=== PATIENT | female | born 2000 | race African-American/Black ===

== ENCOUNTER 2024-07-15 13:15 | Inpatient (IN) | payer OTHER, MEDICAID ==
[~2024-07-15] VITALS: Ht 154.9 cm; Wt 65.7 kg
[2024-07-15 13:21] VITALS: O2SAT 99
[2024-07-15 14:24] LABS: BASOPHILS % 0.1 % (0.0-2.0); EOSINOPHILS % 0.1 % (0.0-5.0); HEMATOCRIT. 38.8 % (36.0-48.0); HEMOGLOBIN. 13.2 g/dL (12.0-16.0); LYMPHOCYTES % 21.5 % (20.0-50.0); MEAN CORPUSCULAR HEMOGLOBIN 28.4 pg (28.0-32.0); MEAN CORPUSCULAR HGB CONC 33.9 g/dL (31.0-37.0); MEAN CORPUSCULAR VOLUME 83.5 fL (81.0-99.0); MONOCYTES % 7.4 % (2.0-8.0); NEUTROPHILS % 70.9 % (40.0-76.0); PLATELET 335 x1000/uL (130-400); RED BLOOD CELL COUNT 4.64 mill/uL (4.2-5.4); RED CELL DISTRIBUTION WIDTH 15.2 % (11.6-14.6)
[2024-07-15 14:35] LABS: CHLORIDE 106 mEq/L (98-107); POTASSIUM 2.9 mEq/L (3.5-5.1); SODIUM 140 mEq/L (136-145)
[2024-07-15 14:36] LABS: CALCIUM 9.4 mg/dL (8.7-10.4); CARBON DIOXIDE 21 mEq/L (21-32)
[2024-07-15 14:41] LABS: CREATININE 0.6 mg/dL (0.6-1.0); GLUCOSE 114 mg/dL (70-105); UREA NITROGEN BLOOD 6 mg/dL (9-23)
[2024-07-15 14:43] LABS: ALANINE AMINOTRANSFERASE 10 IU/L (10-49); ALBUMIN 4.4 g/dL (3.2-4.8); ASPARTATE AMINOTRANSFERASE 16 IU/L (<34); BILIRUBIN DIRECT 0.1 mg/dL (<=3.0)
[2024-07-15 14:44] LABS: BILIRUBIN TOTAL 0.4 mg/dL (0.1-1.0); PROTEIN TOTAL 7.9 g/dL (6.0-8.3)
[2024-07-15 15:18] LABS: HCG SCREEN POSITIVE
[2024-07-15] MEDS ORDERED: ONDANSETRON HCL 4MG/2ML INJ IV PRN (16:30)
[2024-07-15] MEDS ORDERED: ACETAMINOPHEN 325MG TABLET PO PRN (16:30)
[2024-07-15] MEDS ORDERED: DEXTROSE 50% WATER 50ML SYRINGE IV PRN (16:45)
[2024-07-15 16:49] VITALS: TEMP 36.9; O2SAT 99
[2024-07-15 17:00] VITALS: BP 136/84; PULSE 18; RESP 19; TEMP 98.42
[2024-07-15] MEDS ORDERED: POTASSIUM CHLORIDE 20MEQ TABLET SR PO SCH ×2 (17:00)
[2024-07-15] MEDS: ACETAMINOPHEN 325MG TABLET PO PRN (17:08)
[2024-07-15] MEDS: INSULIN LISPRO 100 UNITS/ML SUBCUT SCH (17:26)
[2024-07-15] MEDS ORDERED: INSULIN GLARGINE 100 UNITS/ML SUBCUT SCH (22:00)
== END 2024-07-15 19:50 | disposition left against medical advice (07) | DRG 566 ==
LOC: ER 13:15 → 7EST 14:20 → EDBEDREQ 14:24 → EDBEDREQTM 14:24
PROVIDERS: ADMIT Internal Medicine; ATTEND Internal Medicine
DX: O99.280 Endocrine, nutritional and metabolic diseases complicating pregnancy, unspecified trimester (principal); E11.649 Type 2 diabetes mellitus with hypoglycemia without coma; O24.119 Pre-existing type 2 diabetes mellitus, in pregnancy, unspecified trimester; E87.6 Hypokalemia; R13.10 Dysphagia, unspecified; R74.8 Abnormal levels of other serum enzymes; Z53.29 Procedure and treatment not carried out because of patient's decision for other reasons; Z79.4 Long term (current) use of insulin; Z82.49 Family history of ischemic heart disease and other diseases of the circulatory system; Z91.128 Patient's intentional underdosing of medication regimen for other reason; Z3A.00 Weeks of gestation of pregnancy not specified
CPT/HCPCS: 36415; 80048; 80076; 82962; 83036; 84703; 85025; 99291